=== PATIENT | male | born 1975 | race Caucasian/White ===

== ENCOUNTER 2024-05-07 19:19 | Emergency (ER) | payer BC, SELFPAY ==
[2024-05-07 19:22] VITALS: BP 145/92
--- NOTE | 2024-05-07 20:45 | ED.GENMED ---
History of Present Illness
General
Chief Complaint: Skin Problem
Time Seen by Provider: 05/07/24 19:52
History of Present Illness
History of Present Illness:
Patient is a 48-year-old man with history of hypertension presenting to the emergency department with a laceration to his left pinky. Patient states that he was using kitchen shahrzad cutting food when he accidentally cut the tip of his left pinky.
He is not on blood thinners. However the bleeding has been unable to stop so they came in for further evaluation. No numbness tingling. No weakness. He did not get trauma anywhere else.
Phy Exam
Physical Exam
Physical Exam:
GENERAL: in no acute distress
HEENT: normocephalic, extraocular movements intact
NECK: normal inspection
RESPIRATORY: no respiratory distress
CARDIOVASCULAR: regular rate and rhythm
EXTREMITIES: Right pinky with distal finger avulsion on the palmar side with no nailbed involvement. No tendons or bony exposed. Sensation intact
NEUROLOGIC: awake and alert, moves all extremities
SKIN: warm
Course
Orders/Labs/Results
Orders:
Orders
05/07/24 20:40
Tetanus/Diphth/Acelpertussis [Adacel] 0.5 ml IM .ONCE ONE
CR Finger(s)/thumb Min 2 Vw Lt Urgent
Comment:
Reason For Exam: fingertip avulsion
Vital Signs
Initial and Last Documented VS:
Initial Vital Signs
Temp Pulse Resp BP Pulse Ox
98.0 F 87 18 145/92 98
05/07/24 19:22 05/07/24 19:22 05/07/24 19:22 05/07/24 19:22 05/07/24 19:22
Last Documented Vital Signs
Temp Pulse Resp BP Pulse Ox
98.0 F 87 18 145/92 98
05/07/24 19:22 05/07/24 19:22 05/07/24 19:22 05/07/24 19:22 05/07/24 19:22
MDM/Problems Addressed
Differential Diagnosis Includes:
Patient is a 48 woman with history of hypertension present to the emergency department finger tip laceration. Vitals unremarkable exam does show avulsion finger tip on the palmar . Aspect. I did irrigate the wound. I did place Surgicel as well
as Surgicel and placed a compression wrap over it with an Junior wrap. Will obtain x-ray to rule out any fractures. Did update patient's tetanus.
*Critical Care Note
Total Time (30-74mins, 75-104mins- exclusive of procedures): Not Applicable
Update Note
Update Note:
On evaluation bleeding has been controlled. However patient states that he is having paresthesias to the finger. I did loosen the Junior wrap which should resolve all the symptoms. X-ray per my interpretation with no fracture. Will discharge at
this time. Patient educated on removing the dressing 24 to 48 hours afterwards and to see if has dissolved or if it needs to be removed. Strict return precautions given.
ED Attending Note
-
Portions of this chart may have been created with voice recognition software.� Occasional wrong word or��sound alike� substitutions may have occurred due to the inherent limitations of voice recognition software.
Discharge Plan
Departure
Patient Disposition: Home (Routine Discharge)
Date of Disposition: 05/07/24
Time of Disposition: 21:26
Patient with high blood pressure during this ER visit?: No
Discharge Problem:
Avulsion, finger tip
Instructions: Wound Care (DC)
Referrals:
Abdiel Zamudio MD [Family Provider] -
Discharge Date and Time
Print Language: [place]
[2024-05-07] MEDS: ADACEL 0.5 ML IM (21:21)
== END 2024-05-07 21:58 | disposition home or self-care (01) ==
LOC: EMR 19:19
PROVIDERS: EMERGENCY PHYSICIAN Student in an Organized Health Care Education/Training Program; FAMILY PHYSICIAN Family Medicine
DX: S61.217A Laceration without foreign body of left little finger without damage to nail, initial encounter (principal); R20.2 Paresthesia of skin; W27.2XXA Contact with scissors, initial encounter; Y93.G1 Activity, food preparation and clean up; Z23 Encounter for immunization; I10 Essential (primary) hypertension
CPT/HCPCS: 99283; 90471; 73140; 90715

== ENCOUNTER 2025-06-30 04:23 | Emergency (ER) | payer BC, SELFPAY ==
--- NOTE | 2025-06-30 06:10 | ED.MUSCINJ ---
HPI-Injury
<Sunny Jay DO, Resident - Last Filed: 06/30/25 10:47>
General
Chief Complaint: Musculo-Skeletal Complaint
Source: patient
Exam Limitations: none
Time Seen by Provider: 06/30/25 06:02
Nursing documentation reviewed up to this point in time: agreed with
History of Present Illness-Injury
Initial Injury comments:
Anthony Freeman is a 49-year-old male with past medical history of hypertension, not on any blood thinners, who presents to the emergency room with injury to the right thumb. Injury occurred at 1300 yesterday. Patient endorses slamming car door on his
right thumb. States that since then, swelling has progressively worsened. Endorses some pain, but says that it is the sensation of pressure that bothers him. Did not take any pain medications at home. Says that he is able to move his thumb freely,
and that he has full sensation of the R thumb and rest of the right hand. Endorses improvement in symptoms with ice pack administered in ED.
Past History
<Sunny Jay DO, Resident - Last Filed: 06/30/25 10:47>
Past History
ED Past Medical History: HTN
Review of Systems
<Sunny Jay DO, Resident - Last Filed: 06/30/25 10:47>
Review of Systems
Allergies reviewed?: Yes
All Other Systems: ROS reviewed and negative except as documented in HPI and ROS
Musculoskeletal Injury Exam
<Sunny Jay DO, Resident - Last Filed: 06/30/25 10:47>
Musculoskeletal Injury Exam
Right Thumb:
Pain with Movement?: None
Tender to palpation?: Mild
Soft tissue swelling?: Moderate
External deformity and angulation?: None
Hematoma-local bleeding into tissue?: Moderate
Strain- Sprain- Tear (Connective tissue injury)?: None
Crepitus with movement?: No
Joint instability?: No
Malalignment/deformity?: No
Range of motion: Full (mildly limited secondary to swelling; otherwise full flexion, extension and opposition)
Distal skin color and temperature: normal-warm & good color
Capillary Refill: normal
Normal distal neurovascular exam?: Yes
Peripheral Pulses: radial (right): 2+
Phy Exam
<Sunny Jay DO, Resident - Last Filed: 06/30/25 10:47>
Physical Exam
Physical Exam:
General: Well developed, well nourished male in NAD, nontoxic
HEENT: Normocephalic, atraumatic
Resp: Normal WOB
Neuro: Awake, alert, steady gait. R thumb with no loss of sensation and normal ROM.
Psych: Calm, normal affect
MSK: Thumb exam as above.
Injury Course
<Sunny Jay DO, Resident - Last Filed: 06/30/25 10:47>
Orders/Labs/Results
Orders:
Orders
06/30/25 04:29
Thumb/Finger 2 View Rt [CR Finger(s)/thumb Min 2 Vw Rt] Urgent
Comment:
Reason For Exam: closed thumb in car door
06/30/25 06:28
Ketorolac [Toradol] 30 mg IM NOW STA
<Eladia Patterson MD - Last Filed: 06/30/25 06:33>
Orders/Labs/Results
Orders:
Orders
06/30/25 04:29
Thumb/Finger 2 View Rt [CR Finger(s)/thumb Min 2 Vw Rt] Urgent
Comment:
Reason For Exam: closed thumb in car door
06/30/25 06:28
Ketorolac [Toradol] 30 mg IM NOW STA
<Sunny Jay DO, Resident - Last Filed: 06/30/25 10:47>
MDM/Problems Addressed
Differential Diagnosis Includes:
R Thumb Subungual Hematoma, Soft Tissue Swelling, r/o Fx, r/o Dislocation
MDM/Problems Addressed:
49M who is 18 hours status post injury to the right thumb with progressively worsening swelling and pressure like sensation of the right thumb. Patient with moderate swelling of the right thumb and subungual hematoma covering approx. 90% of the nail
bed. Otherwise no obvious deformity of the joints, sensation intact, normal capillary refill. XR of the R thumb without dislocation. There is a questionable finding on the distal tip that represent a fracture or a vascular/nutrient line. If it is a
fracture, it is not displaced and would not climate change analyst. Discussed with patient that we would call back with results if radiology reads as fracture. Otherwise will administer IM Toradol and discharge to home with OTC pain instructions. It does
not appear that trepenation would change course as most of the swelling appears to be from the soft tissue, but patient given the option and decline. Discharge to home with close follow up.
Update: Radiology read on Finger XR, Nondisplaced fracture distal phalanx right thumb. Patient called and updated. Given information on follow up with Ortho for splinting and evaluation.
<Sunny Jay DO, Resident - Last Filed: 06/30/25 10:47>
*Pulse Oximetry
Patient hypoxic: no
*Critical Care Note
Total Time (30-74mins, 75-104mins- exclusive of procedures): Not Applicable
ED Attending Note
<Sunny Jay DO, Resident - Last Filed: 06/30/25 10:47>
-
Portions of this chart may have been created with voice recognition software.� Occasional wrong word or��sound alike� substitutions may have occurred due to the inherent limitations of voice recognition software.
<Eladia Patterson MD - Last Filed: 06/30/25 06:33>
ED Attending Note
Patient seen and examined by attending physician: Yes
I performed the substantive portion of visit, reviewed & personally made and approve the management plan that is documented in note by myself or KINDRA.: Yes
ED Attending Note:
49-year-old male presents emergency department complaints of thumb pain after accidentally closing a car door on it yesterday. He has not taken anything for pain. Pain is getting progressively worse and described as extreme throbbing. He does
note a subungual hematoma. He denies any other complaints. On exam, patient awake alert pleasant, nontoxic. Distal thumb with soft tissue swelling and 80 to 90% subungual hematoma. Range of motion preserved, sensation intact, motor 5 out of 5.
X-ray with questionable linear abnormality, awaiting final read. This is in the very distal aspect of the metacarpal without angulation. Trephination discussed however declined as less likely to be helpful as majority of pain appears to involve
soft tissue. No signs to suggest infection. Patient will be given a dose of Toradol IM, advised to take nonsteroidals, close follow-up.
Discharge Plan
Departure
Patient Disposition: Home (Routine Discharge)
Date of Disposition: 06/30/25
Time of Disposition: 07:21
Patient with high blood pressure during this ER visit?: No
Condition: Good
Discharge Problem:
Subungual hematoma, Soft tissue swelling of joint of finger
Instructions: Ibuprofen, Using Cold for Pain
Referrals:
Abdiel Zamudio MD [Family Provider, Family Practice]
Activity Restrictions/Additional Instructions:
For pain control, you may take 600mg of Ibuprofen every 6 hours as needed. Initially you should take this around the clock, and decrease to as needed dosing as the pain and swelling subside.
We are monitoring the X-Ray of your thumb and waiting for the official radiologist's read. We will call you if there are any abnormal findings.
You should otherwise use ice packs as needed, and elevation of the affected hand when possible to help drain the swelling.
Return to the ED if you start to experience a loss of sensation to the area, severe pain, complete loss of color, or an inability to move the thumb.
Interventions
Interventions:
*General Assessment Last Done: 06/30/25 05:25
*Neglect/Abuse Screening Last Done: 06/30/25 05:25
*ED COVID-19 Vaccine History Last Done: 06/30/25 05:25
*ED Influenza Vaccine History Last Done: 06/30/25 05:25
[facility] Risk Assessment Tool Last Done: 06/30/25 05:26
*Risk Screen - Suicide (C-SSRS) Last Done: 06/30/25 04:25
*Nursing Disposition Last Done: 06/30/25 08:07
ED-Musculoskeletal Assessment Last Done: 06/30/25 05:25
Discharge Date and Time
Discharge Date/Time: 06/30/25 08:09
Print Language: [place]
[2025-06-30] MEDS: TORADOL 30 MG IM (06:37)
== END 2025-06-30 08:09 | disposition home or self-care (01) ==
LOC: EMR 04:23
PROVIDERS: EMERGENCY PHYSICIAN Emergency Medicine; FAMILY PHYSICIAN Family Medicine
DX: S60.111A Contusion of right thumb with damage to nail, initial encounter (principal); S60.931A Unspecified superficial injury of right thumb, initial encounter; W23.2XXA Caught, crushed, jammed or pinched between a moving and stationary object, initial encounter; Y92.810 Car as the place of occurrence of the external cause; I10 Essential (primary) hypertension
CPT/HCPCS: 99284; 96372; 73140